=== PATIENT | male | born 2000 | race Hispanic/Latino ===

== ENCOUNTER 2022-08-28 01:59 | Emergency (ER) | payer MEDICAID ==
[~2022-08-28] VITALS: Ht 167.6 cm; Wt 136.1 kg
[2022-08-28 04:40] LABS: BASOPHILS % (AUTO) 0.5 % (0.0-5.0); EOSINOPHILS % (AUTO) 0.7 % (0.0-8.0); HEMATOCRIT 46.1 % (42-54); LYMPHOCYTES % (AUTO) 23.8 % (21.0-51.0); MEAN CORPUSCULAR HEMOGLOBIN 27.7 pg (27.0-33.0); MEAN CORPUSCULAR HGB CONC 32.1 g/dL (32.0-36.0); MEAN CORPUSCULAR VOLUME 86.2 fL (79-99); MONOCYTES % (AUTO) 8.4 % (3.0-13.0); NEUTROPHILS % (AUTO) 65.9 % (40.0-77.0); PLATELET COUNT (AUTO) 269 K/uL (130-400); RED BLOOD CELL COUNT(AUTO) 5.35 MIL/uL (4.50-6.20); RED CELL DISTRIBUTION WIDTH 13.1 % (11.0-15.5); WHITE BLOOD COUNT (AUTO) 15.3 K/uL (4.8-10.8)
[2022-08-28 04:49] LABS: POTASSIUM 3.6 mmol/L (3.5-5.1)
[2022-08-28 04:54] LABS: ALBUMIN 3.8 g/dL (3.5-5.0); TOTAL PROTEIN, SERUM 8.2 g/dL (6.0-8.3)
[2022-08-28 06:39] LABS: APPEARANCE,URINE CLEAR (CLEAR); BILIRUBIN,URINE NEGATIVE (NEGATIVE); COLOR,URINE YELLOW (YELLOW); GLUCOSE, URINE (UA) NEGATIVE (NEGATIVE); KETONES,URINE NEGATIVE (NEGATIVE); LEUKOCYTE ESTERASE ,URINE NEGATIVE Leu/uL (NEGATIVE); NITRATE,URINE NEGATIVE (NEGATIVE); PH,URINE 5.5 (5.0-8.0); PROTEIN,URINE 20 mg/dL (NEGATIVE); UROBILINOGEN,URINE 0.2 mg/dL (0.2-1.0)
[2022-08-28 06:57] LABS: BACTERIA,URINE RARE /HPF (None Seen); MUCUS,URINE FEW LPF (None Seen); SQUAMOUS EPITHELIAL CELL,UR RARE /HPF (0-2)
[2022-08-28 07:09] VITALS: BP 136/68
[2022-08-28] MEDS ORDERED: [UNRECOGNIZED DRUG - CODE] PO (07:14)
[2022-08-28] MEDS ORDERED: BENZ-39 PO (07:14)
== END 2022-08-28 07:30 | disposition home or self-care (01) ==
LOC: EDH 01:59
DX: J40 Bronchitis, not specified as acute or chronic (principal); D72.829 Elevated white blood cell count, unspecified; Z20.822 Contact with and (suspected) exposure to COVID-19
CPT/HCPCS: 99284; 71045; 87635; 80053; 85025; 87804 ×2; 81001; 36415; C9803

== ENCOUNTER 2025-01-12 15:23 | Emergency (ER) | payer SELFPAY ==
[~2025-01-12] VITALS: Ht 167.6 cm; Wt 142.9 kg
[~2025-01-12 15:23] MED LIST: BENZ-39 PO; [UNRECOGNIZED DRUG - CODE] PO
--- NOTE | 2025-01-12 16:27 | NUR ---
pt assigned to fast track from no assumed care at this time
[2025-01-12 16:50] LABS: RAPID GROUP A STREP negative (NEGATIVE)
[2025-01-12 17:00] LABS: COVID19 (SARS ANTIGEN RAPID) PRESUMPTIVE NEGATIVE (NEGATIVE); INFLUENZA TYPE A Negative For Type A (NEGATIVE)
--- NOTE | 2025-01-12 17:03 | NUR ---
FLUB+ ERMD MADE AWARE
[2025-01-12 17:04] LABS: INFLUENZA TYPE B Positive For Type B (NEGATIVE)
[2025-01-12] MEDS ORDERED: IBUP-2070 PO (17:09)
--- NOTE | 2025-01-12 17:09 | ERN ---
ED Note History of Present Illness Stated Complaint: BODY ACHES Chief Complaint: Sore Throat Time Seen by MD: 15:28 Allergies: Coded Allergies: No Known Allergies (Unverified Allergy, Unknown, 08/28/22) Home Meds Active Scripts Guaifenesin/Dextromethorphan (Robafen Dm 200-20 mg/20 ml Liq) 118 Ml Liquid, 10 ML PO QID for 10 Days, #400 ML Prov:JALEN BERG MD 08/28/22 Benzonatate (Tessalon Perles) 100 Mg Cap, 100 MG PO TID, #30 CAP Prov:JALEN BERG MD 08/28/22 Past Medical History Past Medical History: No Pertinent History Surgical History: None Social History: Negative Initial Vital Sign VS Vital Signs Date Time Temp Pulse Resp B/P (MAP) Pulse Ox O2 Delivery O2 Flow Rate FiO2 01/12/25 15:32 100.2 93 18 164/100 98 Room Air Results (Laboratory/Radiology) Laboratory/Radiology Laboratory Tests Test 01/12/25 16:24 Influenza Type A Antigen Negative For Type A Influenza Type B Antigen Positive For Type B SARS-CoV-2 Antigen (Rapid) PRESUMPTIVE NEGATIVE Group A Streptococcus Rapid negative (NEGATIVE) ED Course ED Course Orders Procedure Category Date Status Time Rapid (Group A Strep) LAB 01/12/25 Complete 15:58 Covid19 (Sars Antigen LAB 01/12/25 Complete Rapid) 15:58 Influenza Type A & B, LAB 01/12/25 Complete Rapid 15:58 Acetaminophen 500mg PHA 01/12/25 Complete Tab (Tylenol 500mg T 16:00 Current Medications Medications (Trade) Dose Ordered Sig/Nicky Route PRN Reason Start Time Stop Time Status Last Admin Dose Admin Acetaminophen (TYLenol 500MG TAB) 1,000 mg ONCE ONCE PO 01/12/25 16:00 01/12/25 16:01 DC Vital Signs Date Time Temp Pulse Resp B/P (MAP) Pulse Ox O2 Delivery O2 Flow Rate FiO2 01/12/25 15:32 100.2 93 18 164/100 98 Room Air DX & DISP Disposition: Discharge Departure Impression: Primary Impression: Influenza B Additional Impression: Viral pharyngitis Condition: Stable Scripts Ibuprofen (Ibuprofen) 600 Mg Tablet 600 MG PO Q6H PRN for PAIN, #15 TAB Prov: ANSLEY GARRETT [employer] 01/12/25 Additional Instructions: Please follow up with your primary doctor in 1-2 days. Your symptoms are related to influenza B and not bacterial infection so there is no need for antibiotics at this time. If symptoms worsen please return to ER. FOLLOW-UP WITH PRIMARY CARE PROVIDER IN 1 TO 2 DAYS. TAKE MEDICATIONS DIRECTED HERE IN THE EMERGENCY ROOM. OKAY TO CONTINUE HOME MEDICATIONS UNLESS OTHERWISE DISCUSSED DURING YOUR VISIT IN THE EMERGENCY ROOM TODAY. RETURN TO YOUR NEAREST EMERGENCY ROOM IF SYMPTOMS WORSEN OR IF THERE IS NO IMPROVEMENT. CALL 911 IF YOU NEED IMMEDIATE ASSISTANCE. TAKE TYLENOL OR MOTRIN [id number] NEEDED AND IF NO CONTRAINDICATIONS ARE PRESENT. INCREASE ORAL HYDRATION. A WOUND CULTURE OR URINE CULTURE WAS ORDERED HERE IN THE EMERGENCY ROOM DEPARTMENT PLEASE FOLLOW-UP WITH PRIMARY CARE PROVIDER AND ADVISE THEM TO GET REPEAT PORTS FROM OUR FACILITY. IF YOU HAD ANY FAINA WRAP/SPLINTS THAT WERE APPLIED HERE, PLEASE DO NOT REMOVE THEM UNTIL YOU SEE YOUR PRIMARY CARE OR SPECIALTY. Referrals: PINO PIRECE (PCP) Time of Disposition: 17:08 I have reviewed the case, and I agree with, Diagnosis and Plan ANSLEY GARRETT January 12, 2025 17:09
[2025-01-12 17:28] VITALS: BP 151/90; PULSE 88; RESP 18; TEMP 98.9; O2SAT 98
[2025-01-12] MEDS: acetaMINOPHEN 500 MG TABLET PO ONE (17:28)
[2025-01-12 17:35] VITALS: TEMP 99.8
== END 2025-01-12 17:36 | disposition home or self-care (01) ==
LOC: EDH 15:23
DX: J10.1 Influenza due to other identified influenza virus with other respiratory manifestations (principal); J02.8 Acute pharyngitis due to other specified organisms; B97.89 Other viral agents as the cause of diseases classified elsewhere; Z20.822 Contact with and (suspected) exposure to COVID-19; Z79.899 Other long term (current) drug therapy
CPT/HCPCS: 87426; 87804; 87880; 99283

== ENCOUNTER 2025-01-25 02:25 | Emergency (ER) | payer OTHER ==
[~2025-01-25] VITALS: Ht 167.6 cm; Wt 151.5 kg
[~2025-01-25 02:25] MED LIST changes: +IBUP-2070 PO
[2025-01-25] MEDS: hydroMORPHone 2 MG VIAL (2MG/ML) IVP ONE (03:06)
[2025-01-25 03:12] LABS: BASOPHILS # (AUTO) 0.05 K/uL (0.00-0.20); BASOPHILS % (AUTO) 0.3 % (0.0-5.0); EOSINOPHILS # (AUTO) 0.04 K/uL (0.00-0.70); EOSINOPHILS % (AUTO) 0.3 % (0.0-8.0); HEMATOCRIT 41.1 % (42-54); IMMATURE GRANULOCYTE ABSOLUTE 0.13 K/uL (0-1); LYMPHOCYTES # (AUTO) 2.6 K/uL (1.0-4.8); LYMPHOCYTES % (AUTO) 17.6 % (21.0-51.0); MEAN CORPUSCULAR HEMOGLOBIN 28.9 pg (27.0-33.0); MEAN CORPUSCULAR HGB CONC 33.1 g/dL (32.0-36.0); MEAN CORPUSCULAR VOLUME 87.4 fL (79-99); MONOCYTES # (AUTO) 1.5 K/uL (0.1-1.0); MONOCYTES % (AUTO) 9.7 % (3.0-13.0); NEUTROPHILS # (AUTO) 10.6 K/uL (1.8-7.7); NEUTROPHILS % (AUTO) 71.2 % (40.0-77.0); PLATELET COUNT (AUTO) 371 K/uL (130-400); RED CELL DISTRIBUTION WIDTH 11.9 % (11.0-15.5); WHITE BLOOD COUNT (AUTO) 14.9 K/uL (4.8-10.8)
[2025-01-25 03:17] LABS: POTASSIUM 3.8 mmol/L (3.5-5.1)
[2025-01-25] MEDS ORDERED: DOXY100C5 PO (03:29)
--- NOTE | 2025-01-25 03:30 | ERN ---
General Chief Complaint: Testicular Injury/Pain Stated Complaint: C/O PAIN W/SWELLING TO RT TESTICLE X 4 DAYS Time Seen by MD: 02:45 Source: patient History of Present Illness Initial Comments Some swelling in his right scrotum approximately four days ago. The swelling initially receded and then it came back with increased redness and pain. Currently the patient is in excruciating pain it is almost impossible for me to do an exam. He reports fevers subjectively possibly chills. No pain in urination no nausea no vomiting no diarrhea. Allergies: Coded Allergies: No Known Allergies (Unverified Allergy, Unknown, 08/28/22) Home Meds Active Scripts Ibuprofen (Ibuprofen) 600 Mg Tablet, 600 MG PO Q6H PRN for PAIN, #15 TAB Prov:ANSLEY GARRETT [employer] 01/12/25 Guaifenesin/Dextromethorphan (Robafen Dm 200-20 mg/20 ml Liq) 118 Ml Liquid, 10 ML PO QID for 10 Days, #400 ML Prov:JALEN BERG MD 08/28/22 Benzonatate (Tessalon Perles) 100 Mg Cap, 100 MG PO TID, #30 CAP Prov:JALEN BERG MD 08/28/22 Past Medical History Past Medical History: No Pertinent History Past Surgical History: None Social History Social History: Negative Constitutional: (+) chills, (+) fever EENTM: (-) eye pain, (-) blurred vision, (-) tearing, (-) double vision, (-) ear pain, (-) ear discharge, (-) nose pain, (-) nose congestion, (-) throat pain, (-) Throat swelling, (-) mouth pain, (-) tooth pain, (-) mouth swelling, (-) other documentation Respiratory: (-) cough, (-) orthopnea, (-) short of breath, (-) stridor, (-) wheezing, (-) other documentation Cardiovascular: (-) chest pain, (-) edema, (-) palpitations, (-) syncope, (-) dyspnea on exertion, (-) other documentation Gastrointestinal/Abdominal: (-) nausea, (-) vomiting, (-) diarrhea, (-) abdominal pain, (-) abdominal distention, (-) constipation, (-) rectal bleeding, (-) dark stool/melena, (-) other documentation Genitourinary: (-) penile discharge, (-) dysuria, (-) frequency, (-) hematuria, (-) pain, (-) other documentation Skin: (-) laceration, (-) contusion, (-) abrasion, (-) abscess, (-) rash, (-) change in color, (-) change in hair, (-) change in nails, (-) diaphoresis, (-) dryness, (-) other documentation Physical Exam General Appearance: (+) moderate distress Head/Face Trauma: No Eye: bilateral eye normal inspection, bilateral eye PERRL, bilateral eye EOMI Genital Comment Patient's right testicle sac is slightly red and thickened. Patient's right testicle appears to be somewhat enlarged relative to the left one. The right testicle is extremely tender especially posteriorly. It was impossible for me to examine the patient's inguinal canal secondary to pain. Results Laboratory and Microbiology Lab and Micro Result Laboratory Tests Test 01/25/25 03:03 White Blood Count 14.9 K/uL (4.8-10.8) H Red Blood Count 4.70 MIL/uL (4.50-6.20) Hemoglobin 13.6 g/dL (14.0-18.0) L Hematocrit 41.1 % (42-54) L Mean Corpuscular Volume 87.4 fL (79-99) Mean Corpuscular Hemoglobin 28.9 pg (27.0-33.0) Mean Corpuscular Hemoglobin Concent 33.1 g/dL (32.0-36.0) Red Cell Distribution Width 11.9 % (11.0-15.5) Platelet Count 371 K/uL (130-400) Mean Platelet Volume 9.9 fL (7.5-10.5) Immature Granulocyte % (Auto) 0.9 % (0-1) Neutrophils (%) (Auto) 71.2 % (40.0-77.0) Lymphocytes (%) (Auto) 17.6 % (21.0-51.0) L Monocytes (%) (Auto) 9.7 % (3.0-13.0) Eosinophils (%) (Auto) 0.3 % (0.0-8.0) Basophils (%) (Auto) 0.3 % (0.0-5.0) Neutrophils # (Auto) 10.6 K/uL (1.8-7.7) H Lymphocytes # (Auto) 2.6 K/uL (1.0-4.8) Monocytes # (Auto) 1.5 K/uL (0.1-1.0) H Eosinophils # (Auto) 0.04 K/uL (0.00-0.70) Basophils # (Auto) 0.05 K/uL (0.00-0.20) Absolute Immature Granulocyte (auto 0.13 K/uL (0-1) Nucleated Red Blood Cells 0.0 % (0.0-0.19) Sodium Level 139 mmol/L (136-145) Potassium Level 3.8 mmol/L (3.5-5.1) Chloride Level 103 mmol/L (101-111) Carbon Dioxide Level 32 mmol/L (21-32) Blood Urea Nitrogen 8 mg/dL (7-18) Creatinine 1.0 mg/dL (0.5-1.3) Glomerular Filtration Rate Calc 106 mL/min (>90) Random Glucose 105 mg/dL (70-105) Total Calcium 8.7 mg/dL (8.5-10.1) MDM Patient's lab studies are back he has a white count 14. In addition the testicular ultrasound shows epididymitis. I will prescribe the appropriate antibiotics. I will give the patient a bolus of antibiotics here and then discharge him from the hospital. ED Course Orders Procedure Category Date Status Time Hydromorphone 2mg PHA 01/25/25 Complete Vial (Dilaudid 2mg Inj 03:00 Us Scrotum & Contents US 01/25/25 Taken 02:47 Cbc With Differential LAB 01/25/25 Complete 03:05 Basic Metabolic Panel LAB 01/25/25 Complete 03:05 Current Medications Medications (Trade) Dose Ordered Sig/Nicky Route PRN Reason Start Time Stop Time Status Last Admin Dose Admin Hydromorphone HCl (DiLAUDid 2MG INJ) 2 mg ONCE ONCE IVP 01/25/25 03:00 01/25/25 03:01 DC 01/25/25 03:06 Vital Signs Date Time Temp Pulse Resp B/P (MAP) Pulse Ox O2 Delivery O2 Flow Rate FiO2 01/25/25 03:09 98.4 96 18 138/75 99 Room Air* 0 21 01/25/25 02:26 100.4 104 20 133/91 95 Room Air DX & DISP Disposition: Discharge Departure Impression: Primary Impression: Epididymitis Condition: Stable Scripts Doxycycline Hyclate (Doxycycline Hyclate) 100 Mg Capsule 1 CAP PO BID for 10 Days, #20 CAP 0 Refills Prov: CLARISSE CARMONA MD 01/25/25 Referrals: SELF,REFERRAL (PCP) You have inflammation of your scrotum and possibly infection as well I have your scrotum your testes and your spermatic cord. Please take the antibiotics to completion. Please go to your primary care physician for prescriptions for your partner as well to prevent reciprocal spread of this infection. If the redness and swelling does not go down in the next few days please come back for stronger antibiotics. CLARISSE CARMONA MD Jan 25, 2025 03:30
[2025-01-25] MEDS ORDERED: KETO10 PO (03:43)
[2025-01-25] MEDS: cefTRIAXone 2GM VIAL IVP STA (03:49)
[2025-01-25 04:05] VITALS: BP 142/86; PULSE 88; RESP 20; TEMP 98.5; O2SAT 98
--- NOTE | 2025-01-25 11:10 | HMCIMG ---
US SCROTUM & CONTENTS REASON: epididmitis COMPARISON: None TECHNIQUE: Routine scrotal sonogram was performed. Vascular Doppler evaluation was performed with spectral analysis and color flow imaging. FINDINGS: Right testicle is 3.1 x 2.4 x 3.0 cm, left 3.6 x 1.8 x 2.4 cm. There is homogeneous appearing parenchyma. There is mildly increased blood flow on the right compared to the left. The right epididymis appears enlarged and inhomogeneous. There is increased blood flow. Findings are consistent with epididymitis and possible early orchitis. Incidental note is made of a 3 mm cyst head of the right epididymis. Left epididymis appears normal. There is no hyperemia. There is no evidence of varicocele in either testicle. IMPRESSION: 1. Findings consistent with right-sided epididymitis with possible early orchitis
== END 2025-01-25 04:46 | disposition home or self-care (01) ==
LOC: EDH 02:25
DX: N45.1 Epididymitis (principal); Z79.899 Other long term (current) drug therapy
CPT/HCPCS: 99285; 96365; 96375; 80048; 85025; 36415; 76870; J0696; J1171